=== PATIENT | female | born 1945 | race Caucasian/White ===

== ENCOUNTER 2022-12-23 09:23 | Emergency (ER) | payer MEDICARE, MEDICAID ==
[~2022-12-23] VITALS: Ht 154.9 cm; Wt 61.2 kg
--- NOTE | 2022-12-23 09:45 | NUR ---
Female loading manager accompanied female patient for (DR Hernandez).
[2022-12-23 09:55] VITALS: BP 121/82
--- NOTE | 2022-12-23 09:55 | NUR ---
Patient discharged to home in stable condition. Written and verbal after care instructions given. Patient verbalizes understanding of instructions. Stressed follow up or return to ER for worsening s/s.
== END 2022-12-23 09:55 | disposition home or self-care (01) ==
LOC: ER 09:23
DX: K64.4 Residual hemorrhoidal skin tags (principal); E03.9 Hypothyroidism, unspecified
CPT/HCPCS: A4663

== ENCOUNTER 2023-04-29 07:35 | Outpatient (CLI) | payer MEDICARE, OTHER | END 2023-04-29 23:59 | disposition home or self-care (01) | LOC: LAB 07:35 → EDBD 07:35 → LAB 23:59 | PROVIDERS: ATTEND Podiatrist Foot & Ankle Surgery | DX: Z01.812 Encounter for preprocedural laboratory examination (principal); Z20.822 Contact with and (suspected) exposure to COVID-19 ==

== ENCOUNTER → 2023-05-01 | Day surgery (SDC) | payer MEDICARE, OTHER ==
[~2023-05-01] MED LIST: BUPIVACAINE PF 0.5% 30 ML VIAL ONE; CEFAZOLIN 1 G VIAL ONE; CEFAZOLIN 1 G in IV DEXTROSE 5% 50 ML IV ONE; CEFAZOLIN IV ONE; D5W IV ONE; EPHEDRINE SULFATE 50 MG/ML AMPUL ONE; FAMOTIDINE. 20 MG/2 ML VIAL IV ONE; FENTANYL CITRATE 250 MCG/5 ML AMPUL ONE; GLYCOPYRROLATE 0.2 MG/ML VIAL ONE; HYDROCODONE/APAP 5-325MG TABLET ONE; HYDROMORPHONE 2 MG/1 ML DISP.SYRIN ONE; LIDOCAINE HCL 1% 20 ML VIAL ONE; LIDOCAINE-MPF 2% 5 ML VIAL ONE; METOCLOPRAMIDE HCL 10 MG/2 ML VIAL ONE; MIDAZOLAM HCL 2 MG/2 ML VIAL ONE; NEOSTIGMINE METHYLSULFATE 10 MG/10 ML VIAL ONE; ONDANSETRON 4 MG/2 ML VIAL ONE; PROPOFOL 200 MG/20 ML BOTTLE ONE; ROCURONIUM BROMIDE 50 MG/5 ML VIAL ONE; SEVOFLURANE 250 ML BOTTLE ONE
[2023-05-01 14:25] VITALS: TEMP 97
== END | disposition home or self-care (01) ==
LOC: EDBD → DS 06:58 → EDBD 06:58
PROVIDERS: ATTEND Podiatrist Foot & Ankle Surgery
DX: M20.12 Hallux valgus (acquired), left foot (principal); M21.622 Bunionette of left foot; M25.775 Osteophyte, left foot; I10 Essential (primary) hypertension; E78.5 Hyperlipidemia, unspecified; M19.90 Unspecified osteoarthritis, unspecified site; K21.9 Gastro-esophageal reflux disease without esophagitis; Z79.899 Other long term (current) drug therapy; Z98.890 Other specified postprocedural states
CPT/HCPCS: 73630; A4649; A4663; J0690; J1170; J2250; J2405; J2765; J3010; J3490; J7120